=== PATIENT | female | born 1940 | race African-American/Black ===

== ENCOUNTER 2019-01-11 22:50 | Emergency (ER) | payer OTHER ==
[2019-01-11 22:56] VITALS: BP 132/76; PULSE 88; TEMP 98.3; BMI 23.3
--- NOTE | 2019-01-11 23:22 | PDOC ---
Documentation entered by [place] Jonas SCRIBE, acting as scribe for Gabriel Malave MD. Gabriel Malave MD: This documentation has been prepared by the Sumi sanders Sammi, SCRIBE, under my direction and personally reviewed by me in its entirety. I confirm that the documentation accurately reflects all work, treatment, procedures, and medical decision making performed by me. History of Present Illness - General Chief Complaint: Headache Stated Complaint: ANDREWS Time Seen by Provider: 01/11/19 22:59 History Source: Patient Exam Limitations: No Limitations - History of Present Illness Initial Comments: 01/11/19 23:13 The patient is a 78 year old female, with a significant PMH of HTN, who presents to the emergency department for evaluation of 2 hours of a posterior headache, 5/10 in severity. She states she had a fight with a family member at around 9pm, which caused her to become very upset, and the headache started soon after. The patient reports taking her blood pressure at home which was 130s /90s. She states she took 3 aspirin and a second dose of her losartan as she believed the headache was due to high blood pressure. Of note, the patient is recovering from sinusitis. The patient states her headache is currently a 2/10. Denies neck pain, chest pain, SOB. Denies weakness or numbness. Denies vomiting , fever, chills. Allergies: NKA PCP: Osmani Past History - Past Medical History Allergies/Adverse Reactions: Allergies Allergy/AdvReac Type Severity Reaction Status Date / Time No Known Allergies Allergy Unverified 01/11/19 22:55 Home Medications: Ambulatory Orders Amlodipine Besylate [Norvasc -] 5 mg PO DAILY 01/11/19 Losartan 50Mg/Hctz 12.5MG [Hyzaar -] 1 tab PO DAILY 01/11/19 COPD: No HTN: Yes - Suicide/Smoking/Psychosocial Hx Smoking History: Unknown if ever smoked Have you smoked in the past 12 months: No Number of Cigarettes Smoked Daily: 0 Information on smoking cessation initiated: No Hx Alcohol Use: No Drug/Substance Use Hx: No Review of Systems - Review of Systems Comments:: 01/11/19 23:15 A complete review of 10 out of 10 review of systems is taken and is negative apart from what is previously mentioned below and in the HPI. *Physical Exam - Vital Signs Last Vital Signs Temp Pulse Resp BP Pulse Ox 98.3 F 88 14 132/76 100 01/11/19 22:51 01/11/19 22:51 01/11/19 22:51 01/11/19 22:51 01/11/19 22:51 - Physical Exam Comments: 01/11/19 23:15 Vitals: Triage vital signs reviewed General Appearance: No acute distress, well nourished, well developed Eyes: Pupils equal reactive round, extraocular movement intact Cardiac: Regular rate and rhythm, no murmurs, no rubs, no gallops Lungs: Clear to auscultation bilateral, good air movement bilaterally Skin: Warm and dry, no rashes or lesions, no rash, no petechiae Neuro: AOX3; Cranial Nerves 2-12 grossly intact, Strength intact to all extremities, Sensation intact to all extremities Psych: Normal mood, normal affect Medical Decision Making - Medical Decision Making 01/11/19 23:21 Well-appearing no apparent distress with very mild headache this evening in the context of an argument with her daughter. Headache was gradual in onset a 5 out of 10 at its maximal and is now 2 out of 10 and is completely resolved with just home pain medication. Denies sudden onset no neck stiffness no nausea no vomiting no fever no other red flags on patient's headache history offered patient further management in the ED but she states she is feeling well and like to return home She will follow-up with Dr. Phelan return to the emergency department for any severe worsening symptoms or for any concerns. Findings, need follow-up and strict return instructions discussed patient. *DC/Admit/Observation/Transfer Diagnosis at time of Disposition: Headache Qualifiers: Headache type: unspecified Headache chronicity pattern: unspecified pattern Intractability: not intractable Qualified Code(s): R51 - Headache - Discharge Dispostion Disposition: HOME Condition at time of disposition: Good Decision to Admit order: No - Referrals Referrals: Ashley Keen MD [Primary Care Provider] - - Patient Instructions Printed Discharge Instructions: Tension Headache Additional Instructions: Take [id number] Tylenol as directed on package as needed for headache. Return to ED for any severe worsening symptoms or for any concerns otherwise follow-up with her primary care provider next week. - Post Discharge Activity
== END 2019-01-11 23:23 | disposition home or self-care (01) ==
LOC: FER 22:50
DX: R51 Headache (principal)
CPT/HCPCS: 99282-25